=== PATIENT | female | born 1990 | race Caucasian/White ===

== ENCOUNTER 2020-10-22 18:35 | Inpatient (IN) | payer OTHER ==
[2020-10-22] MEDS ORDERED: metroNIDAZOLE 250 MG TABLET PO ONE (20:01)
[2020-10-22] MEDS ORDERED: metroNIDAZOLE 250 MG TABLET ONE (20:11)
[2020-10-22 20:45] LABS: BASO % 0.5 % (0-2.0); EOS % 0.8 % (0-4.5); HEMATOCRIT 35.9 % (32.4-45.2); HEMOGLOBIN 12.3 GM/dL (10.7-15.3); LYMPH % 20.5 % (8-40); MCH 32.8 pg (25.7-33.7); MCHC 34.3 g/dl (32.0-36.0); MEAN CELL VOLUME 95.7 fl (80-96); MEAN PLT VOLUME 7.8 fl (7.5-11.1); MONO % 8.9 % (3.8-10.2); NEUT % 69.3 % (42.8-82.8); PLATELET COUNT 282 K/MM3 (134-434); RBC 3.75 M/mm3 (3.60-5.2); RDW 12.5 % (11.6-15.6)
[2020-10-22 21:16] LABS: POTASSIUM 3.6 mmol/L (3.5-5.1)
[2020-10-22 21:19] LABS: CALCIUM 9.5 mg/dL (8.5-10.1)
[2020-10-22 21:20] LABS: ALBUMIN 4.3 g/dl (3.4-5.0); BLOOD UREA NITROGEN 6.1 mg/dL (7-18)
[2020-10-22 21:22] LABS: CREATININE 0.5 mg/dL (0.55-1.3)
[2020-10-22 21:25] LABS: BILIRUBIN,TOTAL 0.7 mg/dL (0.2-1); TOT PROT 7.9 g/dl (6.4-8.2)
[2020-10-22] MEDS ORDERED: morphine CARPU-JECT 2 MG/1 ML DISP.SYRIN IVPUSH ONE (22:14)
[2020-10-22] MEDS ORDERED: ACETAMINOPHEN 1000 MG/100 ML VIAL (NON FORMULARY) IVPB ONE (22:15)
[2020-10-22] MEDS ORDERED: MORPHINE SULFATE 2 MG/ML VIAL ONE (22:18)
[2020-10-22] MEDS ORDERED: ACETAMINOPHEN INJECTION 100 ML IVPB ONE (22:19)
[2020-10-22] MEDS ORDERED: AMPICILLIN NA/SULBACTAM NA 3 GM in SODIUM CHLORIDE 100 ML IVPB ONE (22:34)
[2020-10-22] MEDS ORDERED: AMPICILLIN NA/SULBACTAM NA 1.5 GM in SODIUM CHLORIDE 100 ML IVPB ONE (22:38)
[2020-10-23] MEDS ORDERED: MORPHINE SULFATE 2 MG/ML VIAL IVPUSH PRN (00:04)
[2020-10-23 04:34] VITALS: BMI 22.1
[2020-10-23] MEDS ORDERED: AMPICILLIN NA/SULBACTAM NA 3 GM in SODIUM CHLORIDE 100 ML IVPB SCH ×2 (07:15→14:00)
[2020-10-23] MEDS ORDERED: VANCOMYCIN 1 GRAM (PRE-DOCKED) 1,000 MG/250 ML BAG IVPB SCH (09:45)
[2020-10-23] MEDS ORDERED: ENOXAPARIN NA (PORCINE) 40 MG/0.4 ML DISP.SYRIN SQ SCH (10:00)
[2020-10-23] MEDS: ACETAMINOPHEN 325 MG TABLET (FP) PO PRN ×2 (10:28→16:11)
[2020-10-23 12:35] LABS: BASO % 0.5 % (0-2.0); EOS % 0.5 % (0-4.5); HEMATOCRIT 34.6 % (32.4-45.2); HEMOGLOBIN 12.1 GM/dL (10.7-15.3); LYMPH % 13.2 % (8-40); MCH 33.1 pg (25.7-33.7); MCHC 34.9 g/dl (32.0-36.0); MEAN CELL VOLUME 94.6 fl (80-96); MEAN PLT VOLUME 8.1 fl (7.5-11.1); MONO % 9.2 % (3.8-10.2); NEUT % 76.6 % (42.8-82.8); PLATELET COUNT 256 K/MM3 (134-434); RBC 3.66 M/mm3 (3.60-5.2); RDW 12.5 % (11.6-15.6); WHITE BLOOD COUNT 10.4 K/mm3 (4.0-10.0)
[2020-10-23] MEDS ORDERED: diphenhydrAMINE HCL 25 MG CAPSULE (FP) PO PRN (13:03)
[2020-10-23 13:08] LABS: POTASSIUM 3.3 mmol/L (3.5-5.1)
[2020-10-23 13:13] LABS: ALBUMIN 3.9 g/dl (3.4-5.0); BLOOD UREA NITROGEN 6.3 mg/dL (7-18); CALCIUM 8.7 mg/dL (8.5-10.1)
[2020-10-23 13:15] LABS: BILIRUBIN,TOTAL 0.7 mg/dL (0.2-1); CREATININE 0.3 mg/dL (0.55-1.3); PHOSPHOROUS 2.9 mg/dL (2.5-4.9)
[2020-10-23 13:16] LABS: TOT PROT 7.2 g/dl (6.4-8.2)
[2020-10-23] MEDS ORDERED: POTASSIUM CHLORIDE TABS 20 MEQ TABLET.ER (FP) PO ONE (13:16)
[2020-10-23 15:21] VITALS: PULSE 93; TEMP 99.4
[2020-10-23] MEDS ORDERED: ONDANSETRON 4 MG/2 ML VIAL IVPUSH PRN ×2 (15:53→16:00)
[2020-10-23] MEDS ORDERED: oxyCODONE HCL 5 MG TABLET PO PRN ×2 (15:59→16:46)
[2020-10-23] MEDS ORDERED: PT OWN MED DRAWER 7, Y5N ONE (16:06)
[2020-10-23] MEDS ORDERED: SODIUM CHLORIDE 1,000 ML IV SCH (17:15)
[2020-10-23] MEDS ORDERED: MEROPENEM 1 GM in DEXTROSE 5%-WATER 100 ML IVPB SCH (18:00)
[2020-10-23 20:17] VITALS: BP 125/84
[2020-10-23] MEDS ORDERED: CLINDAMYCIN 600MG PREMIX IVPB 600 MG/50 ML BAG IVPB SCH (21:00)
== END 2020-10-23 20:15 | disposition short-term general hospital (02) | DRG 383 ==
LOC: JER 18:35 → JERBED 23:01 → J8W 10-23 03:50
PROVIDERS: ADMIT Internal Medicine; ATTEND Internal Medicine
DX: L03.211 Cellulitis of face (principal); M27.2 Inflammatory conditions of jaws; M60.009 Infective myositis, unspecified site; E87.6 Hypokalemia
CPT/HCPCS: 36415; 70487-TC; 80053; 83735; 84100; 84703; 85025; 87040; 93005; 93010; 99285-25; C9803; J0131; Q9967; U0003

== ENCOUNTER 2023-01-16 22:52 | Emergency (ER) | payer OTHER ==
[2023-01-16 23:06] VITALS: BP 114/69; PULSE 80; RESP 18; TEMP 98; BMI 23.8
[2023-01-16] MEDS ORDERED: ACETAMINOPHEN 500 MG TABLET (FP) PO ONE (23:40)
[2023-01-16] MEDS ORDERED: ACETAMINOPHEN 325 MG TABLET (FP) ONE (23:43)
[2023-01-16 23:44] LABS: BASO % 0.5 % (0-2.0); EOS % 2.3 % (0-4.5); HEMATOCRIT 34.6 % (32.4-45.2); HEMOGLOBIN 12.2 GM/dL (10.7-15.3); LYMPH % 32.2 % (8-40); MCH 32.6 pg (25.7-33.7); MCHC 35.1 g/dl (32.0-36.0); MEAN CELL VOLUME 92.8 fl (80-96); MEAN PLT VOLUME 7.4 fl (7.5-11.1); MONO % 7.3 % (3.8-10.2); NEUT % 57.7 % (42.8-82.8); PLATELET COUNT 305 10^3/uL (134-434); RBC 3.73 M/mm3 (3.60-5.2); RDW 13.6 % (11.6-15.6); WHITE BLOOD COUNT 9.4 K/mm3 (4.0-10.0)
[2023-01-16 23:47] LABS: EPI CELLS >36 /uL (0-25.1); HYALINE CASTS 6 /uL (0-3.1); URINE APPEARANCE TURBID; URINE BACTERIA 5999 /uL (0-1359); URINE BILIRUBIN NEGATIVE (NEGATIVE); URINE COLOR YELLOW; URINE GLUCOSE (UA) NEGATIVE (NEGATIVE); URINE KETONE NEGATIVE (NEGATIVE); URINE LEUK ESTERASE 2+ (NEGATIVE); URINE NITRITE NEGATIVE (NEGATIVE); URINE PROTEIN TRACE (NEGATIVE); URINE RBC 14 /uL (0-23.9); URINE UROBILINOGEN 0.2 mg/dL (0.2-1.0); URINE WBC 55 /uL (0-25.8)
[2023-01-16 23:54] LABS: HCG,QUALITATIVE URINE Positive
[2023-01-16 23:56] LABS: POTASSIUM 3.7 mmol/L (3.5-5.1)
[2023-01-16 23:58] LABS: CALCIUM 9.3 mg/dL (8.5-10.1)
[2023-01-16 23:59] LABS: ALBUMIN 3.4 g/dl (3.4-5.0); BLOOD UREA NITROGEN 4.8 mg/dL (7-18)
[2023-01-17 00:02] LABS: CREATININE 0.4 mg/dL (0.55-1.3)
[2023-01-17] MEDS ORDERED: CEPHALEXIN MONOHYDRATE 500 MG CAPSULE (UD) PO ONE (00:02)
[2023-01-17 00:03] LABS: BILIRUBIN,TOTAL 0.2 mg/dL (0.2-1)
[2023-01-17] MEDS ORDERED: CEPHALEXIN MONOHYDRATE 500 MG CAPSULE (UD) ONE (00:19)
[2023-01-17 07:38] LABS: YEAST NONE SEEN (NEGATIVE)
== END 2023-01-17 02:35 | disposition home or self-care (01) ==
LOC: JER 22:52
DX: O20.9 Hemorrhage in early pregnancy, unspecified (principal); O26.891 Other specified pregnancy related conditions, first trimester; R10.9 Unspecified abdominal pain; O23.41 Unspecified infection of urinary tract in pregnancy, first trimester; N39.0 Urinary tract infection, site not specified; Z3A.09 9 weeks gestation of pregnancy
CPT/HCPCS: 36415; 76817-TC; 80053; 81003; 84702; 84703; 85025; 86850; 86900; 86901; 87086; 99284-25